=== PATIENT | male | born 1955 | race Two or more races ===

== ENCOUNTER 2016-05-21 06:21 | Emergency (ER) | payer OTHER ==
[2016-05-21 07:07] VITALS: PULSE 68; TEMP 98.2; BMI 26.6
--- NOTE | 2016-05-21 07:14 | PDOC ---
History of Present Illness - General Chief Complaint: Wound Stated Complaint: LIP BOIL Time Seen by Provider: 05/21/16 07:13 History Source: Patient Exam Limitations: No Limitations - History of Present Illness Initial Comments: 05/21/16 07:15 CHIEF COMPLAINT: Lower lip pain due to abscess PCP: Dr. Shayy Haynes HISTORY OF PRESENT ILLNESS: 60 year old male presents to the ED with the chief complaints of lower lip pain due to abscess. A/c to the patient, he started having pain over the right side of lower lip since 1 week, 11/10 in intensity, initially was a small red pimple which started growing in size, has intermittent pain over the gum and teeth as well. Except for swelling in the lower lip, no swelling of gums, no bleeding. No h/o insect bite or trauma to that area. Denies fever, chills, rigors, sweating. Patient took tylenol, motrin for pain which slightly relieved the pain, took alcohol last night for the pain which helped. But the pain was so severe that woke him up this morning at 5am and hence had to come to the ED Also complaints of abdominal discomfort since 3 days associated with 3 episodes of diarrhoea/day, no blood noticed. Bladder habit normal. Sleep/Appetite Normal. Recent Travel: None PAST MEDICAL HISTORY: Hypertension PAST SURGICAL HISTORY: As mentioned above Social History: Smoking: Denies Alcohol: Occasional Drugs: Denies Family History:Unknown Allergies: NKDA Past History - Past Medical History Allergies/Adverse Reactions: Allergies Allergy/AdvReac Type Severity Reaction Status Date / Time No Known Allergies Allergy Verified 05/21/16 07:05 Home Medications: Ambulatory Orders Ibuprofen [Motrin -] 400 mg PO TID PRN #15 tablet 05/21/16 Metoprolol Tartrate 25 mg PO BID 05/21/16 Sulfamethoxazole/Trimethoprim [Bactrim Ds Tablet] 1 each PO BID #14 tablet 05/21 Valsartan [Diovan] 320 mg PO DAILY 05/21/16 HTN: Yes - Psycho/Social/Smoking Cessation Hx Suicidal Ideation: No Smoking History: Never smoked Review of Systems - Review of Systems Able to Perform ROS?: Yes Comments:: 05/21/16 08:44 CONSTITUTIONAL: Absent: fever, chills, diaphoresis, generalized weakness, malaise, loss of appetite HEENT: Present: lower lip pain and swelling of lower lip Absent: rhinorrhea, nasal congestion, throat pain, throat swelling, difficulty swallowing, mouth swelling, ear pain, eye pain, visual Changes CARDIOVASCULAR: Absent: chest pain, syncope, palpitations, irregular heart rate, lightheadedness , peripheral edema RESPIRATORY: Absent: cough, shortness of breath, dyspnea with exertion, orthopnea, wheezing, stridor, hemoptysis GASTROINTESTINAL: Absent: abdominal pain, abdominal distension, nausea, vomiting, diarrhea, constipation, melena, hematochezia GENITOURINARY: Absent: dysuria, frequency, urgency, hesitancy, hematuria, flank pain, genital pain MUSCULOSKELETAL: Absent: myalgia, arthralgia, joint swelling SKIN: Absent: rash, itching, pallor HEMATOLOGIC/IMMUNOLOGIC: Absent: easy bleeding, easy bruising, lymphadenopathy, frequent infections ENDOCRINE: Absent: unexplained weight gain, unexplained weight loss, heat intolerance, cold intolerance NEUROLOGIC: Absent: headache, focal weakness or paresthesias, dizziness, unsteady gait, seizure, mental status changes, bladder or bowel incontinence PSYCHIATRIC: Absent: anxiety, depression, suicidal or homicidal ideation, hallucinations. Is the patient limited Macedonian proficient: No *Physical Exam - Vital Signs Last Vital Signs Temp Pulse Resp BP Pulse Ox 98.2 F 68 18 147/100 98 05/21/16 07:05 05/21/16 07:05 05/21/16 07:05 05/21/16 07:05 05/21/16 07:05 - Physical Exam Comments: 05/21/16 08:45 PE: GENERAL: Awake, alert, and fully oriented, in no acute distress HEAD: No signs of trauma EYES: PERRLA, EOMI, sclera anicteric, conjunctiva clear ENT: Auricles normal inspection, hearing grossly normal, nares patent, oropharynx clear without exudates. Moist mucosa Lips: Erythema over the right lower lip 1.5 x 2cm with swelling +, yellowish pin point pus area 0.25cm +, no bleeding, no swelling of gums. NECK: Normal ROM, supple, no lymphadenopathy, JVD, or masses LUNGS: Breath sounds equal, clear to auscultation bilaterally. No wheezes, and no crackles. HEART: Regular rate and rhythm, normal S1 and S2, no murmurs, rubs or gallops ABDOMEN: Soft, nontender, normoactive bowel sounds. No guarding, no rebound. No masses EXTREMITIES: Normal range of motion, no edema. No clubbing or cyanosis. No cords, erythema, or tenderness NEUROLOGICAL: Cranial nerves II through XII grossly intact. Normal speech, normal gait SKIN: Warm, Dry, normal turgor, no rashes or lesions noted. Medical Decision Making - Medical Decision Making 05/21/16 07:15 Patient seen and examined at bed side. Vitals noted, unremarkable. Physical examination positive: Lips: Erythema over the right lower lip 1.5 x 2cm with swelling +, yellowish pin point pus area 0.25cm +, no bleeding, no swelling of gums. Clinical Impression: Abscess of lower lip 05/21/201610/21 Under sterile condition, incision and drainage was performed. Fair amount of pus was drained. It was packed with iodoform and bandaid was applied. Motrin 1tab was given stat. A/P: Abscess of lower lip s/p I & D Motrin for pain Bactrim DS BID x 7 days Patient has been return to the ED on Saturday to remove the gauze or to return if the symptoms worsen. Illness, procedure and plan of care explained to the patient. He verbalized understanding. Case seen and discussed with Dr. Poole. *DC/Admit/Observation/Transfer Diagnosis at time of Disposition: Abscess - Discharge Dispostion Admit: No - Prescriptions Prescriptions: Sulfamethoxazole/Trimethoprim [Bactrim Ds Tablet] 1 each PO BID #14 tablet Ibuprofen [Motrin -] 400 mg PO TID PRN #15 tablet PRN Reason: Moderate Pain - Referrals Referrals: Shayy Lindsey NP [Primary Care Provider] - - Patient Instructions Printed Discharge Instructions: Boil Additional Instructions: You developed an abscess on the lower lip. We performed incision and drainage of the abscess and took out fair amount of pus. We have packed that area so that the space doesn't close and the pus drains on its own. Please make sure you keep the area dry and clean. Visit the Emergency Department on Saturday to clean the wound. Please make sure you take the antibiotics for 7days and Motrin for pain. Please return to the Emergency Department immediately if you develop severe pain , if redness spreads to other parts of the face, develop fever or any NEW symptoms.
[2016-05-21] MEDS ORDERED: IBUPROFEN 400 MG TABLET (FP) PO ONE ×2 (08:01→08:30)
[2016-05-21] MEDS ORDERED: SULFAMETHOXAZOLE/TRIMETHOPRIM 800MG/160MG D.S. TABLET PO ONE (08:01)
--- NOTE | 2016-05-21 08:02 | PDOC ---
Attending Attestation - Resident Resident Name: Yamilka Vázquez - ED Attending Attestation I have performed the following: I have examined & evaluated the patient, The case was reviewed & discussed with the resident, I agree w/resident's findings & plan, Exceptions are as noted - HPI HPI: 05/21/16 07:58 60y/o immunocompetent male p/w R lower lip swelling/pain over last week. no f/c , no airway or swallowing issues. - Physicial Exam PE: 05/21/16 07:59 afebrile airway patent well appearing R lower lip 2-3cm induration with scab/purulent head, + underlying fluctuance, no facial cellulitis. No gingival or floor of mouth involvement, single tender reactive 1.5cm R submandibular lymph node. - Medical Decision Making 05/21/16 08:00 Patient seen and evaluated with the resident. I agree with the overall evaluation, assessment, and management with the following summary of visit: 60-year-old male with right lower lip early abscess, no associated cellulitis or evidence of deep tissue involvement. Airway intact, well appearing, afebrile. INCISION AND DRAINAGE PROCEDURE: The skin was prepped with Betadine solution. 2% lidocaine was injected subcutaneously for local anesthesia. Incision of the center of the abscess was performed with a #11 blade. Purulent material was expressed from the incision. A curved clamp was used to break up loculations within the abscess. Further purulent material was expressed from the incision. Gauze packing was placed within the wound. A clean, dry, sterile dressing was placed. Patient was advised regarding wound care and followup for packing removal in 48h. Understands return criteria to be seen sooner than in 48h. Will treat empirically with bactrim.
[2016-05-21] MEDS ORDERED: BACITRACIN 0.9 GM PACKET ONE (08:30)
[2016-05-21] MEDS ORDERED: SULFAMETHOXAZOLE/TRIMETHOPRIM 800MG/160MG D.S. TABLET ONE (08:33)
[2016-05-21 08:41] VITALS: BP 136/88
== END 2016-05-21 08:54 | disposition home or self-care (01) ==
LOC: JER 06:21
PROC: 0C91XZZ Drainage of Lower Lip, External Approach (ICD-10-PCS; principal; 2016-05-21)
DX: K13.0 Diseases of lips (principal); I10 Essential (primary) hypertension
CPT/HCPCS: 40799; 99282-25